=== PATIENT | male | born 1985 | race Caucasian/White ===

== ENCOUNTER → 2023-12-06 | Day surgery (SDC) | payer OTHER ==
[~2023-12-06] VITALS: Ht 170.2 cm; Wt 70.1 kg
[~2023-12-06] MED LIST: LR 1,000 ML IV SCH; Lidocaine PF 2% (20 MG/ML) 5 ML VIAL ONE; Ondansetron 4 MG/2 ML VIAL IV PRN
[2023-12-06 07:53] VITALS: BP 113/80; PULSE 58; TEMP 98.8
--- NOTE | 2023-12-06 09:04 | NUR ---
0904: Returns to room 4 per cart, AOx4, ambulates to recliner with standby assist. Denies abd/chest pain or dysphagia. Vitals inititated and stable. at bedside.
[2023-12-06 09:05] VITALS: BP 102/76; PULSE 63; TEMP 98
[2023-12-06 09:20] VITALS: BP 101/82; PULSE 67; TEMP 98
--- NOTE | 2023-12-06 09:28 | NUR ---
0913: Pt tolerating PO coffee and muffin - swallows with difficulty or nausea. 0925: Discharge instructions reviewed. Copy provided in discharge folder. Pt verbalizes understanding.
--- NOTE | 2023-12-06 09:39 | NUR ---
MD Mamie in room with pt
--- NOTE | 2023-12-06 09:48 | NUR ---
Pt dressed self - states understanding after speaking with MD Mamie - no additiona questions. Escorted out in wheelchair accompanied by
[2023-12-06 10:59] VITALS: BP 103/66; PULSE 68
== END | disposition home or self-care (01) ==
LOC: SDCO 06:58
DX: K29.51 Unspecified chronic gastritis with bleeding (principal); K62.89 Other specified diseases of anus and rectum; Z80.0 Family history of malignant neoplasm of digestive organs; F17.210 Nicotine dependence, cigarettes, uncomplicated
CPT/HCPCS: J2704; J7120